=== PATIENT | female | born 1965 | race Caucasian/White ===

== ENCOUNTER 2016-12-30 20:54 | Emergency (ER) | payer SELFPAY ==
[~2016-12-30] VITALS: Ht 165.1 cm; Wt 77.1 kg
[2016-12-30 20:57] VITALS: BP 0/0
[2016-12-30] MEDS ORDERED: EPINEPHrine HCL 1 MG/10 ML SYRG IV ONE (20:59)
[2016-12-30] MEDS ORDERED: SODIUM BICARBONATE 8.4% INJ 50ML SYRINGE IV ONE (20:59)
== END 2016-12-31 01:11 | disposition expired ==
LOC: EDAGE 20:54 → ER 20:58 → EDBD 20:58 → ER 12-31 01:11
DX: I46.9 Cardiac arrest, cause unspecified (principal); V43.52XA Car driver injured in collision with other type car in traffic accident, initial encounter; Y93.89 Activity, other specified; Y99.8 Other external cause status; Y92.89 Other specified places as the place of occurrence of the external cause
CPT/HCPCS: 92950; 99285; J0171